=== PATIENT | female | born 1970 | race Caucasian/White ===

== ENCOUNTER 2023-05-12 10:29 | Outpatient (CLI) | payer BC, MEDICARE, SELFPAY ==
--- NOTE | ~2023-05-12 | CT_ITS ---
EXAMINATION: CT abdomen pelvis wo con DATE: 05/12/2023 11:01 INDICATION: Right flank pain. TECHNIQUE: Computed tomography (CT) of the abdomen and pelvis was performed without intravenous contr ast. Automated exposure control and iterative reconstruction technique were employed. The dose-length product was 209.89 mGy-cm. COMPARISON: None. FINDINGS: The visualized portions of the lung bases demonstrate minimal atelectasis on the left. No p leural effusion. The heart size is normal. No pericardial effusion. The liver is normal. There are ch anges of cholecystectomy. The spleen, pancreas, adrenal glands, and kidneys are normal. There is no u rolithiasis. There is a 3.7 cm mass in right ovary. There is diverticulosis of the colon without evid ence of diverticulitis. The appendix is normal. There are no pathologically enlarged lymph nodes. The re is no free intraperitoneal fluid. There are bilateral inguinal hernias containing fat. There is talbert bcutaneous fat stranding in anterior abdominal wall, likely scarring. There is mild thoracolumbar spo ndylosis. IMPRESSION: 1. No urolithiasis. 2. 3.7 cm right ovarian mass, which may be benign or less likely malignant. Pelvis ultrasound is adeline mmended. Reviewed, dictated and finalized at location A. IMPRESSION: 1. No urolithiasis. 2. 3.7 cm right ovarian mass, which may be benign or less likely malignant. Pel vis ultrasound is recommended.
== END 2023-05-12 10:30 | disposition home or self-care (01) ==
LOC: CHSIMG 10:42
PROVIDERS: PCP Physician Assistant; Visit Provider Physician Assistant
DX: R10.9 Unspecified abdominal pain (principal); N83.9 Noninflammatory disorder of ovary, fallopian tube and broad ligament, unspecified
CPT/HCPCS: 74176

== ENCOUNTER 2023-05-17 12:36 | Outpatient (CLI) | payer BC, MEDICARE, SELFPAY ==
--- NOTE | ~2023-05-17 | US_ITS ---
EXAMINATION: US pelvic complete w TV DATE: 05/17/2023 13:19 INDICATION: Right ovarian mass, history of left oophorectomy TECHNIQUE: Multiple transabdominal and endovaginal sonographic images of the pelvis were obtained. COMPARISON: CT, 05/12/2023 FINDINGS: The uterus measures 8.4 x 5.7 x 5.0 cm. The endometrial complex measures 5 mm. Multiple nab othian cysts are noted in the cervix. The left ovary is surgically absent. The right ovary measures 3 .3 x 2.8 x 2.6 cm. There are multiple simple cysts of the right ovary, the largest of which measures 3.9 x 3.9 x 2.6 cm. There is normal vascular flow in the right ovary. There is no free fluid in the p chichi. IMPRESSION: 1. Simple right ovarian cysts measuring up to 3.9 cm. Reviewed, dictated and finalized at location B.
== END 2023-05-17 12:37 | disposition home or self-care (01) ==
LOC: CHSIMG 12:38
PROVIDERS: PCP Physician Assistant; Visit Provider Physician Assistant
DX: N83.201 Unspecified ovarian cyst, right side (principal)
CPT/HCPCS: 76830; 76856